=== PATIENT | female | born 1955 | race Caucasian/White ===

== ENCOUNTER 2021-02-16 09:28 | Day surgery (SDC) | payer MEDICARE ==
[2021-02-16] MEDS ORDERED: Decadron 4 MG INJ IV ONE (09:29)
[2021-02-16] MEDS ORDERED: BUPIVACAINE 0.5% VIAL IJ ONE (09:29)
[2021-02-16] MEDS ORDERED: Depo-Medrol 40 MG/ML IM ONE (09:29)
[2021-02-16] MEDS ORDERED: Xylocaine 1% Vial 30 ML PF IJ ONE (09:29)
[2021-02-16] MEDS ORDERED: DIPRIVAN 200 MG/20 ML IV ONE (10:50)
[2021-02-16] MEDS ORDERED: Lactated Ringers 1,000 ML IV ONE (11:09)
--- NOTE | 2021-02-16 11:40 | XRAY ---
Indication: Left hip, greater trochanter bursa, and piriformis injections. Intraoperative fluoroscopy provided for 37 seconds. 4 digital spot images obtained prone submitted for interpretation demonstrates needle tips lateral to the left femur neck, lateral to left greater trochanter, and projecting over left piriformis muscle. Small amount of contrast injected for all needle tip placement. Correlate with intraoperative findings/report.
--- NOTE | 2021-02-16 12:23 | XRAY ---
37 seconds fluoroscopy time in surgery for injections of the left intra-articular joint space, the left greater trochanter, and the left piriformis muscle.
== END 2021-02-16 11:00 | disposition home or self-care (01) ==
LOC: SDC-PAIN 09:28
PROVIDERS: ATTEND Psychiatry & Neurology Pain Medicine
DX: M16.12 Unilateral primary osteoarthritis, left hip (principal); M79.18 Myalgia, other site; I25.10 Atherosclerotic heart disease of native coronary artery without angina pectoris; I10 Essential (primary) hypertension; E78.5 Hyperlipidemia, unspecified; E11.9 Type 2 diabetes mellitus without complications; Z79.899 Other long term (current) drug therapy
CPT/HCPCS: 20550; 20610; 73502; 77002; 82947; J1030; J1100; J2001; J2704; Q9966

== ENCOUNTER 2021-06-13 10:07 | Day surgery (SDC) | payer MEDICARE ==
[2021-06-13] MEDS ORDERED: BUPIVACAINE 0.5% VIAL IJ ONE (12:02)
[2021-06-13] MEDS ORDERED: Depo-Medrol 40 MG/ML IM ONE (12:02)
[2021-06-13] MEDS ORDERED: DIPRIVAN 200 MG/20 ML IV ONE (12:38)
[2021-06-13] MEDS ORDERED: Lactated Ringers 1,000 ML IV ONE (13:51)
--- NOTE | 2021-06-13 13:55 | XRAY ---
Indication: Right shoulder and subacromial injections. Intraoperative fluoroscopy provided for 27 seconds. 2 digital spot image submitted for interpretation demonstrates needle tip projecting over the right glenohumeral joint superiorly. Second needle tip subacromial. Small amount of contrast injected for both needle tip placement. Correlate with intraoperative findings/report.
--- NOTE | 2021-06-13 13:55 | XRAY ---
27seconds fluoroscopy time in surgery for right intra-articular and subacromial bursa injections.
== END 2021-06-13 13:08 | disposition home or self-care (01) ==
LOC: SDC-PAIN 10:07
PROVIDERS: ATTEND Psychiatry & Neurology Pain Medicine
DX: M19.011 Primary osteoarthritis, right shoulder (principal); M75.51 Bursitis of right shoulder; I10 Essential (primary) hypertension; Z79.899 Other long term (current) drug therapy
CPT/HCPCS: 20610; 73030; 77002; 82947; J1030; J2704; Q9966

== ENCOUNTER 2022-10-16 10:32 | Day surgery (SDC) | payer MEDICARE ==
[2022-10-16] MEDS ORDERED: BUPIVACAINE 0.5% VIAL IJ ONE (10:33)
[2022-10-16] MEDS ORDERED: Depo-Medrol 40 MG/ML IM ONE (10:33)
--- NOTE | 2022-10-16 18:48 | XRAY ---
Indication: Left hip and left greater trochanter bursa injection. Intraoperative fluoroscopy provided for 21 seconds. 2 digital spot image submitted for interpretation demonstrates needle tip projecting lateral to left femur neck and left greater trochanter. Small amount of contrast injected for both needle tip placement. Correlate with intraoperative findings/report.
--- NOTE | 2022-10-16 18:50 | XRAY ---
Indication: Right right shoulder and subacromial bursa injection. Intraoperative fluoroscopy provided for 19 seconds. 2 digital spot image submitted for interpretation demonstrates needle tip projecting over the right glenohumeral joint superiorly. Second needle tip subacromial. Small amount of contrast injected for both needle tip placement. Correlate with intraoperative findings/report.
--- NOTE | 2022-10-16 18:56 | XRAY ---
21 seconds of fluoroscopy was used in surgery for a left intra-articular hip and greater trochanteric bursa injection.
--- NOTE | 2022-10-16 18:56 | XRAY ---
19 seconds of fluoroscopy was used in surgery for a right intra-articular shoulder and subacromial bursa injection.
== END 2022-10-16 13:35 | disposition home or self-care (01) ==
LOC: SDC-PAIN 10:32
PROVIDERS: ATTEND Psychiatry & Neurology Pain Medicine
DX: M16.12 Unilateral primary osteoarthritis, left hip (principal); M70.62 Trochanteric bursitis, left hip; M19.011 Primary osteoarthritis, right shoulder; M75.51 Bursitis of right shoulder; Z79.899 Other long term (current) drug therapy
CPT/HCPCS: 20610; 73030; 73502; 77002; 82947; J1030; J2704; Q9966